=== PATIENT | female | born 1995 | race Two or more races ===

== ENCOUNTER 2021-09-10 10:22 | Emergency (ER) | payer MEDICAID, OTHER ==
[~2021-09-10] VITALS: Ht 167.6 cm; Wt 95.3 kg
[2021-09-10 10:39] VITALS: BP 114/85
[2021-09-10] MEDS ORDERED: IBUP800T27 PO (11:00)
[2021-09-10] MEDS ORDERED: AMOX-277 PO (11:00)
== END 2021-09-10 11:23 | disposition home or self-care (01) ==
LOC: ER 10:22
DX: J03.90 Acute tonsillitis, unspecified (principal); H66.93 Otitis media, unspecified, bilateral; Z79.1 Long term (current) use of non-steroidal anti-inflammatories (NSAID); Z79.2 Long term (current) use of antibiotics

== ENCOUNTER → 2023-09-24 | Emergency (ER) | payer MEDICAID ==
[~2023-09-24] VITALS: Ht 167.6 cm; Wt 94.3 kg
[~2023-09-24] MED LIST: AMOX875T4 PO; IBUP-1456 PO
[2023-09-24 21:41] VITALS: BP 129/90; PULSE 124; RESP 16; O2SAT 98
== END | disposition left against medical advice (07) ==
LOC: ER 21:19
DX: K08.89 Other specified disorders of teeth and supporting structures (principal); Z53.21 Procedure and treatment not carried out due to patient leaving prior to being seen by health care provider